=== PATIENT | male | born 1960 | race Caucasian/White ===

== ENCOUNTER 2023-05-30 19:08 | Inpatient (IN) | payer BC ==
[~2023-05-30] VITALS: Ht 175.3 cm; Wt 103.1 kg
[2023-05-30 19:25] LABS: BASOPHILS # (AUTO) 0.1 X10'3 (0-0.2); BASOPHILS % (AUTO) 0.4 % (0-1); EOSINOPHILS % (AUTO) 0.3 % (0-6); HEMATOCRIT 41.8 % (42.0-52.0); HEMOGLOBIN 14.1 g/dl (14.0-17.9); LYMPHOCYTES # (AUTO) 1.6 X10'3 (1.1-4.8); MEAN CORPUSCULAR HEMOGLOBIN 30.4 PG (27.0-31.0); MEAN CORPUSCULAR HGB CONC 33.6 g/dL (33.0-36.5); MEAN CORPUSCULAR VOLUME 90.3 FL (78-98); MONOCYTES # (AUTO) 1.4 X10'3 (0-0.9); MONOCYTES % (AUTO) 8.6 % (2-12); NEUTROPHILS # (AUTO) 12.8 X10'3 (1.8-7.7); NEUTROPHILS % (AUTO) 80.7 % (42-75); PLATELET COUNT 254 X10'3 (140-440); RED BLOOD COUNT 4.63 X10'6 (4.70-6.10); RED CELL DISTRIBUTION WIDTH 14.6 % (11.5-14.5); WHITE BLOOD COUNT 15.9 X10'3 (4.5-11.0)
[2023-05-30 19:48] LABS: ALBUMIN 3.6 G/DL (3.4-5.0); ANION GAP 4 (8-16); BLOOD UREA NITROGEN 15 MG/DL (7-18); BUN/CREATININE RATIO 18.8 (10.0-20.0); CALCIUM 8.7 MG/DL (8.5-10.1); CHLORIDE 100 MMOL/L (99-107); GLUCOSE 131 MG/DL (70-104); POTASSIUM 3.7 MMOL/L (3.5-5.1); PRO BRAIN NATRIURETIC PEPTIDE 304 PG/ML (0-125); SODIUM 136 MMOL/L (135-145); TOTAL CARBON DIOXIDE 31.7 MMOL/L (24-32); eCRCL 97 ML/MIN; eGFR > 90 ML/MIN
[2023-05-30] MEDS ORDERED: LISI10TA27 PO (20:22)
[2023-05-30] MEDS ORDERED: TIRZ15PE (20:22)
[2023-05-30] MEDS ORDERED: ASPI-611 PO (20:22)
[2023-05-30] MEDS ORDERED: mag hydrox/Alum hydrox/simeth 30ml oral suspension PO PRN (20:50)
[2023-05-30] MEDS ORDERED: potassium Cl 20 mEq SR tablet PO PRN ×2 (20:50)
[2023-05-30] MEDS ORDERED: magnesium Cl slow-release 64mg tablet PO PRN (20:50)
[2023-05-30] MEDS ORDERED: magnesium hydroxide 30ml (MOM) UD suspension PO PRN (20:50)
[2023-05-30] MEDS ORDERED: acetaminophen 325mg tablet PO PRN (20:50)
[2023-05-30] MEDS ORDERED: ondansetron/PF 4mg/2ml inj IV PRN (20:50)
[2023-05-30] MEDS ORDERED: potassium Cl 40MEQ/1/2NS 520ml 520 ML IV PRN (20:50)
[2023-05-30] MEDS ORDERED: magnesium 4gm in 100ml NS 100 ML IV PRN (20:50)
[2023-05-30] MEDS ORDERED: nitroGLYCERIN 0.4mg SUBLingual tab SL PRN (21:25)
[2023-05-30] MEDS ORDERED: aminophylline 250mg/10ml inj. IV PRN (21:25)
[2023-05-30] MEDS ORDERED: metoprolol tartrate 1mg/ml inj IV PRN (21:25)
[2023-05-30] MEDS ORDERED: DEXTROSE 15 GM of carb/4 tabs (each vial/BOTTLE has 4 tablets) PO PRN ×2 (21:30)
[2023-05-30] MEDS ORDERED: dextrose 50%-water 50ml dispensing syringe IV PRN ×2 (21:30)
[2023-05-30] MEDS ORDERED: glucagon, human recombinant 1mg kit SUBCUT PRN (21:30)
[2023-05-30] MEDS: atorvastatin 20mg tablet PO SCH (21:36)
[2023-05-30 23:21] VITALS: BP 146/84; PULSE 75; RESP 18; TEMP 99.6; O2SAT 97
[2023-05-30 23:30] VITALS: RESP 18; O2SAT 96
[2023-05-31] VITALS (15 sets, daily range): BP systolic 119–161; BP diastolic 51–83; PULSE 59–95; RESP 15–20; TEMP 97.3–99.2; O2SAT 94–98
[2023-05-31] MEDS: lisinopril 20mg tablet PO SCH (00:29)
[2023-05-31 01:10] LABS: BILIRUBIN,URINE SMALL (Neg); CLARITY,URINE CLEAR (Clear); GLUCOSE, URINE NEGATIVE (Neg); KETONES,URINE NEGATIVE (Neg); LEUKOCYTE ESTERASE ,URINE NEGATIVE (Neg); NITRITES, URINE NEGATIVE (Neg); OCCULT BLOOD,URINE TRACE-INTACT (Neg); PH,URINE 5.5 (4.8-8.0); PROTEIN,URINE TRACE mg/dl (Neg); UROBILINOGEN,URINE 0.2 E.U/dL (0.2-1.0)
[2023-05-31 01:33] LABS: COLOR,URINE DARK YELLOW (Yellow); UA COLLECTION TYPE CLN CATCH MIDSTREAM
[2023-05-31 01:37] LABS: BACTERIA,URINE NONE SEEN /HPF (Neg); MUCUS STRANDS FEW /LPF (Neg); RBC,URINE 0-2 /HPF (0-2); SQUAMOUS EPITHELIAL CELL,UR NONE SEEN /LPF (FEW); WBC,URINE 0-4 /HPF (0-4)
[2023-05-31 08:32] LABS: BASOPHILS % (AUTO) 0.2 % (0-1); EOSINOPHILS # (AUTO) 0.1 X10'3 (0-0.9); HEMATOCRIT 39.7 % (42.0-52.0); HEMOGLOBIN 13.2 g/dl (14.0-17.9); LYMPHOCYTES # (AUTO) 1.5 X10'3 (1.1-4.8); LYMPHOCYTES % (AUTO) 13.5 % (21-51); MEAN CORPUSCULAR HEMOGLOBIN 29.8 PG (27.0-31.0); MEAN CORPUSCULAR HGB CONC 33.2 g/dL (33.0-36.5); MEAN CORPUSCULAR VOLUME 89.8 FL (78-98); MEAN PLATELET VOLUME 7.5 FL (7.4-10.4); MONOCYTES # (AUTO) 1.6 X10'3 (0-0.9); MONOCYTES % (AUTO) 14.4 % (2-12); NEUTROPHILS % (AUTO) 70.9 % (42-75); PLATELET COUNT 246 X10'3 (140-440); RED BLOOD COUNT 4.42 X10'6 (4.70-6.10); RED CELL DISTRIBUTION WIDTH 14.4 % (11.5-14.5); WHITE BLOOD COUNT 11.2 X10'3 (4.5-11.0)
[2023-05-31] MEDS: regadenoson 0.4mg/5ml syringe IV PRN (08:32)
[2023-05-31 08:41] LABS: INR 1.1 INR; PROTHROMBIN TIME 11.4 SECONDS (9.0-12.0)
[2023-05-31] MEDS: PERFLUTREN PROTEIN-A MICROSPHR (Optison) 0.22 MG/ML 3ML VIAL IV ONE (08:50)
[2023-05-31 08:59] LABS: ALANINE AMINOTRANSFERASE 12 U/L (12-78); ALBUMIN 3.1 G/DL (3.4-5.0); ALBUMIN/GLOBULIN RATIO 0.9 (1.1-1.5); ALKALINE PHOSPHATASE 70 IU/L (46-116); ANION GAP 5 (8-16); ASPARTATE AMINO TRANSFERASE 8 U/L (10-37); BLOOD UREA NITROGEN 14 MG/DL (7-18); CALCIUM 8.1 MG/DL (8.5-10.1); CHLORIDE 102 MMOL/L (99-107); CHOL/HDL RATIO 3.2 (0.00-4.99); CHOLESTEROL 136 MG/DL (0-200); GLUCOSE 108 MG/DL (70-104); HDL CHOLESTEROL 42 MG/DL (35-60); LDL CHOLESTEROL 91 MG/DL (50-100); POTASSIUM 3.4 MMOL/L (3.5-5.1); SODIUM 137 MMOL/L (135-145); TOTAL CARBON DIOXIDE 30.2 MMOL/L (24-32); TOTAL PROTEIN 6.7 G/DL (6.4-8.2); TRIGLYCERIDES 46 MG/DL (20-135); eCRCL 111 ML/MIN; eGFR > 90 ML/MIN
[2023-05-31 09:18] LABS: HEMOGLOBIN A1C 5.6 % (4.5-6.2)
[2023-05-31] MEDS: aspirin 81mg, enteric-coated 1 TAB TABLET.DR PO SCH (09:59)
[2023-05-31] MEDS: pantoprazole 40mg Tablet.DR PO SCH (09:59)
[2023-05-31] MEDS ORDERED: METO-395 PO (18:15)
[2023-05-31] MEDS ORDERED: PANT40TA54 PO (18:15)
[2023-05-31] MEDS ORDERED: ATOR20TA66 PO (18:15)
[2023-05-31] MEDS ORDERED: enoxaparin 40mg/0.4ml syringe SQ SCH (20:00)
[2023-06-01] MEDS ORDERED: metoprolol succinate 25mg (24-HOUR) SR. Tablet PO SCH (08:00)
== END 2023-05-31 19:38 | disposition home or self-care (01) | DRG 392 ==
LOC: ER 19:08 → ED HOLD 20:56 → EDBEDREQ 22:15 → PCU 3S 22:39
PROVIDERS: ADMIT Internal Medicine Critical Care Medicine; ATTEND Family Medicine
PROC: 4A02XM4 Measurement of Cardiac Total Activity, External Approach (ICD-10-PCS; principal; 2023-05-31)
PROC: 3E073KZ Introduction of Other Diagnostic Substance into Coronary Artery, Percutaneous Approach (ICD-10-PCS; 2023-05-31)
DX: K21.9 Gastro-esophageal reflux disease without esophagitis (principal); E11.9 Type 2 diabetes mellitus without complications; I10 Essential (primary) hypertension; E78.00 Pure hypercholesterolemia, unspecified; E66.9 Obesity, unspecified; Z68.33 Body mass index [BMI] 33.0-33.9, adult; Z88.0 Allergy status to penicillin; Z91.013 Allergy to seafood; Z82.49 Family history of ischemic heart disease and other diseases of the circulatory system
CPT/HCPCS: 36415; 71045; 78452; 80048; 80053; 80061; 81001; 82948; 83036; 83880; 84484; 85025; 85610; 87081; 93005; 93017; 93306; 99285; A6258; A9500; G0378; J2785